=== PATIENT | female | born 1945 | race Two or more races ===

== ENCOUNTER 2016-10-26 08:39 | Day surgery (SDC) | payer BC ==
[2016-10-22 09:40] VITALS: BMI 30.2
[2016-10-26] MEDS ORDERED: PROPOFOL 20 ML ONE ×2 (09:05)
[2016-10-26 10:36] VITALS: BP 109/59; PULSE 68; TEMP 98
== END 2016-10-26 10:36 | disposition home or self-care (01) ==
LOC: FASU-ENDO 08:39
PROVIDERS: ATTEND Internal Medicine Gastroenterology
PROC: 0DJD8ZZ Inspection of Lower Intestinal Tract, Via Natural or Artificial Opening Endoscopic (ICD-10-PCS; principal; 2016-10-26 09:29)
DX: Z12.11 Encounter for screening for malignant neoplasm of colon (principal); K57.30 Diverticulosis of large intestine without perforation or abscess without bleeding